=== PATIENT | female | born 1995 | race Caucasian/White ===

== ENCOUNTER 2017-11-24 13:21 | Emergency (ER) | payer OTHER ==
[~2017-11-24] VITALS: Ht 154.9 cm; Wt 59.0 kg
[~2017-11-24 13:21] MED LIST: ALBU90OI INH; CODACE30 PO; DIPATR PO; HYDACE5325 PO; IBUP800 PO; PRENATAL TABLE1 EAC1 PO; Zofran Odt4 MG SL
[2017-11-24] MEDS ORDERED: Macrobid 100 M100 MG PO (15:04)
[2017-11-24 15:11] LABS: Source, Urine Clean Catch
[2017-11-24 15:23] LABS: Appearance, Urine Clear (Clear); Bilirubin, Urine Neg (Neg); Blood, Urine 1+ (Neg); Color, Urine Amber (P-Yellow); Glucose Qualitative, Urine Neg (Neg); Ketones, Urine 1+ (Neg); Leukocyte Esterase, Urine 1+ (Neg); Nitrite, Urine Neg (Neg); Protein, Urine 1+ (Neg); Specific Gravity, Urine 1.025 (1.003-1.022); Urobilinogen, Urine 1+ (Normal)
[2017-11-24 16:36] LABS: Bacteria Few /hpf; Squamous Epithelial Cells Few /hpf (Few)
[2017-11-24 16:37] LABS: Amorphous Mod (0-Heavy)
== END 2017-11-24 15:10 | disposition home or self-care (01) ==
LOC: ER 13:21
PROVIDERS: Psychiatry & Neurology Psychiatry
DX: R30.0 Dysuria (principal)
CPT/HCPCS: 81001; 81025; 87086; 99283

== ENCOUNTER 2023-06-20 13:13 | Emergency (ER) | payer OTHER ==
[~2023-06-20] VITALS: Ht 152.4 cm; Wt 59.0 kg
[~2023-06-20 13:13] MED LIST changes: +Macrobid 100 M100 MG PO
[2023-06-20 13:21] VITALS: BP 141/89
== END 2023-06-20 16:38 | disposition home or self-care (01) ==
LOC: ER 13:13
DX: S61.412A Laceration without foreign body of left hand, initial encounter (principal); S61.211A Laceration without foreign body of left index finger without damage to nail, initial encounter; S61.012A Laceration without foreign body of left thumb without damage to nail, initial encounter; W26.0XXA Contact with knife, initial encounter
CPT/HCPCS: 12002; 73130; 90714; 90715; 99283-25; A9270